=== PATIENT | female | born 1995 | race African-American/Black ===

== ENCOUNTER 2023-05-05 10:05 | Emergency (ER) | payer MEDICAID ==
[~2023-05-05] VITALS: Ht 154.9 cm; Wt 68.0 kg
[2023-05-05 10:12] VITALS: O2SAT 100
[2023-05-05 10:41] VITALS: BP 120/76; PULSE 102; RESP 15; TEMP 97.9
== END 2023-05-05 11:55 | disposition home or self-care (01) ==
LOC: ER 11:25
DX: T16.2XXA Foreign body in left ear, initial encounter (principal); X58.XXXA Exposure to other specified factors, initial encounter; Y93.89 Activity, other specified; Y92.89 Other specified places as the place of occurrence of the external cause; Y99.8 Other external cause status
CPT/HCPCS: 69200; 99284; Z7610; 99281